=== PATIENT | male | born 1995 | race Caucasian/White ===

== ENCOUNTER 2021-02-17 21:25 | Emergency (ER) | payer BC ==
[~2021-02-17] VITALS: Ht 188 cm; Wt 68.0 kg
--- NOTE | 2021-02-17 21:40 | NUR ---
PATIENT BIBSELF C/O UNABLE TO SLEEP X1 DAY. REQUESTING LUNESTA 3MG. NO SIGN OF ACUTE DISTRESS, BREATHING EVEN AND UNLABORED. PT SEEN AND EXAMINED BY DR SALCIDO.
[2021-02-17] MEDS ORDERED: ESZO3TAB27 PO ×2 (21:51→21:53)
--- NOTE | 2021-02-17 22:00 | NUR ---
Patient discharged to home in stable condition. Written and verbal after care instructions given. Patient verbalizes understanding of instruction. Patient ambulatory with a steady gait
[2021-02-17 22:01] VITALS: BP 120/58
== END 2021-02-17 22:01 | disposition home or self-care (01) ==
LOC: ER 21:25
DX: G47.00 Insomnia, unspecified (principal); Z76.0 Encounter for issue of repeat prescription; Z79.899 Other long term (current) drug therapy

== ENCOUNTER 2021-10-20 20:57 | Emergency (ER) | payer BC ==
[~2021-10-20] VITALS: Ht 188 cm; Wt 67.6 kg
[~2021-10-20 20:57] MED LIST: ESZO3TAB27 PO
--- NOTE | 2021-10-20 21:13 | NUR ---
[place] [facility] FROM [facility] C/O OD ON UNKNOWN SUBSTANCE. PATIENT TAKEN ER BED 15. PATIENT AROUSABLE, NO ANSWERING STAFF QUESTION. VSS. WILL CONTINUE TO MONITOR.
--- NOTE | 2021-10-20 21:15 | NUR ---
[employer] AT BEDSIDE
--- NOTE | 2021-10-20 21:22 | NUR ---
[employer] FINAL INSPECTOR AT PT'S BEDSIDE
[2021-10-20 21:37] LABS: BASOPHILS % (AUTO) 0.6 % (0.0-2.0); EOSINOPHILS % (AUTO) 0.1 % (0.0-6.0); HEMATOCRIT 45 % (39-51); LYMPHOCYTES # (AUTO) 1.5 K/uL (0.8-4.8); LYMPHOCYTES % (AUTO) 28.5 % (20.0-44.0); MEAN CORPUSCULAR HGB CONC 33 g/dl (31.0-36.0); MEAN CORPUSCULAR VOLUME 87 fL (80-96); MONOCYTES # (AUTO) 0.3 K/uL (0.1-1.30); MONOCYTES % (AUTO) 6.6 % (2.0-12.0); NEUTROPHILS # (AUTO) 3.4 K/uL (1.8-8.9); NEUTROPHILS % (AUTO) 64.2 % (43.0-81.0); PLATELET COUNT (AUTO) 225 K/uL (150-450); RED BLOOD CELL COUNT(AUTO) 5.22 MIL/uL (4.5-6.0); WHITE BLOOD COUNT (AUTO) 5.2 K/uL (4.3-11.0)
--- NOTE | 2021-10-20 21:50 | NUR ---
URINE COLLECTED AND SENT TO LAB. >1000ML URINE OUTPUT
--- NOTE | 2021-10-20 21:51 | NUR ---
PT TAKEN TO CT VIA [facility]
[2021-10-20] MEDS ORDERED: LORAZEPAM INJ 2 MG/ML VIAL ONE (21:54)
--- NOTE | 2021-10-20 21:58 | NUR ---
PT RESTLESS DURING TRANSPORTATION TO CT; ADMINISTERED ATIVAN 1MG ORDERED. WILL TRY AGAIN LATER
[2021-10-20] MEDS ORDERED: LORAZEPAM INJ 2 MG/ML VIAL IV ONE (22:00)
[2021-10-20 22:13] LABS: CALCIUM, SERUM 9.4 mg/dL (8.5-10.1); CARBON DIOXIDE 29 mmol/L (21-32); CHLORIDE 99 mmol/L (98-107); CREATININE 0.9 mg/dL (0.6-1.3); GLUCOSE 87 mg/dL (74-106); POTASSIUM 3.8 mmol/L (3.5-5.1); SODIUM SERUM 136 mmol/L (136-145); UREA NITROGEN, BLOOD 5 mg/dL (7-18)
[2021-10-20 22:19] LABS: ACETAMINOPHEN 0 ug/ml (10-30); ALANINE AMINOTRANSFERASE 17 U/L (12-78); ALBUMIN 4.8 g/dL (3.4-5.0); ALCOHOL, BLOOD 24 mg/dL (0-0); ALKALINE PHOSPHATASE 65 U/L (46-116); ASPARTATE AMINOTRANSFERASE 19 U/L (15-37); BILIRUBIN,DIRECT 0.2 mg/dL (0.0-0.2)
--- NOTE | 2021-10-20 22:42 | NUR ---
PT TAKEN TO CT VIA [facility]
[2021-10-20 23:13] LABS: BILIRUBIN,URINE NEGATIVE (NEGATIVE); COLOR,URINE YELLOW (YELLOW); LEUKOCYTE ESTERASE ,URINE NEGATIVE (NEGATIVE); NITRITE, URINE NEGATIVE (NEGATIVE); PROTEIN,URINE NEGATIVE (NEGATIVE); UGLUCOSE NEGATIVE (NEGATIVE); UROBILINOGEN,URINE 0.2 EU/dL (0.2)
--- NOTE | 2021-10-21 00:34 | NUR ---
PT SLEEPING. IN NO ACUTE DISTRESS AT THIS TIME. VSS. ALL NEEDS MET. SAFETY MEASURES CONTINUED.
--- NOTE | 2021-10-21 03:05 | NUR ---
pt is awake. however still drowsy and fall back to sleep. pt was provided with water and tolerated well.
--- NOTE | 2021-10-21 05:35 | NUR ---
PT AWOKEN AND AMBULATED TO THE BATHROOM ON STEADY GAIT. PT IS REQUESTING TO LEAVE. MADE AWARE.
--- NOTE | 2021-10-21 06:05 | NUR ---
Patient discharged to home in stable condition. Written and verbal after care instructions given. Patient verbalizes understanding of instruction. Pt ambulatory with a steady gait
[2021-10-21 06:09] VITALS: BP 112/76
== END 2021-10-21 06:05 | disposition home or self-care (01) ==
LOC: ER 21:08
DX: R41.82 Altered mental status, unspecified (principal); Z79.899 Other long term (current) drug therapy
CPT/HCPCS: 36415; 70450; 80048; 80076; 80143; 80307; 80320; 81003; 85025; 96372; 99285; J2060; G0480

== ENCOUNTER 2021-12-16 01:19 | Emergency (ER) | payer BC ==
[~2021-12-16] VITALS: Ht 185.4 cm; Wt 67.6 kg
--- NOTE | 2021-12-16 01:35 | NUR ---
TO ER BED 14. [id number] FROM [facility], FOUND UNCONSIOUS WITH BAG OF XANAX. NEEDS MED CLEARANCE TO GO BACK TO [facility]. BS 120. PT IS ALERT AND ORIENTED. AMBULATORY WITH STEADY GAIT. BREATHING IS EVEN AND NONLABORED. CONNECTED TO MONITOR. BELONGINGS OBTAINED AND SECURED IN LOCKER. SAFETY PRECAUTIONS IN PLACE. AWAITING MD ORDERS
--- NOTE | 2021-12-16 02:59 | NUR ---
Patient discharged to [facility] in stable condition. Written and verbal after care instructions given. Patient verbalizes understanding of instruction.
[2021-12-16 03:06] VITALS: BP 112/72
== END 2021-12-16 03:06 | disposition home or self-care (01) ==
LOC: ER 01:25
DX: T42.4X1A Poisoning by benzodiazepines, accidental (unintentional), initial encounter (principal); R40.4 Transient alteration of awareness; Z79.899 Other long term (current) drug therapy; Y92.89 Other specified places as the place of occurrence of the external cause

== ENCOUNTER 2022-03-29 01:28 | Emergency (ER) | payer SELFPAY ==
[~2022-03-29] VITALS: Ht 185.4 cm; Wt 70.3 kg
[2022-03-29 03:06] VITALS: BP 143/74
== END 2022-03-29 03:25 | disposition home or self-care (01) ==
LOC: ER 01:30
DX: Z00.00 Encounter for general adult medical examination without abnormal findings (principal); Z76.5 Malingerer [conscious simulation]; Z60.2 Problems related to living alone; Z79.899 Other long term (current) drug therapy

== ENCOUNTER 2022-09-04 18:54 | Emergency (ER) | payer BC ==
[~2022-09-04] VITALS: Ht 188 cm; Wt 71.2 kg
--- NOTE | 2022-09-04 19:15 | NUR ---
SENIOR ADULTS DIRECTOR AT PT'S BEDSIDE
--- NOTE | 2022-09-04 19:18 | NUR ---
Patient AOx4 able to express his concerns. Patient states he is in pain 01/09, MD made aware. Discussed plan of care and pending XRAY. 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
[2022-09-04] MEDS ORDERED: KETOROLAC TROMETHAMINE INJ 30 MG/ML VIAL IM ONE (19:30)
--- NOTE | 2022-09-04 19:35 | NUR ---
Handoff report given to Briana ÁLVAREZ
[2022-09-04] MEDS ORDERED: KETOROLAC TROMETHAMINE INJ 30 MG/ML VIAL ONE (19:42)
--- NOTE | 2022-09-04 19:45 | NUR ---
Received patient, AOx4, able to verbalize needs. pt noted to have sling on L arm. Toradol IM given as per MD order. Will continue to monitor.
--- NOTE | 2022-09-04 20:10 | NUR ---
TERRAZZO LABORER ORTHO PAGED. AWAITING CALL BACK FROM PHYSICIAN.
--- NOTE | 2022-09-04 20:19 | NUR ---
DR EVANS ON PHONE CALL WITH DR TELLEZ
[2022-09-04] MEDS ORDERED: MORPHINE SULFATE INJ 2 MG/ML DISP.SYRIN IM ONE (20:30)
[2022-09-04] MEDS ORDERED: MORPHINE SULFATE INJ 2 MG/ML DISP.SYRIN IV ONE (20:30)
[2022-09-04] MEDS ORDERED: MORPHINE SULFATE INJ 2 MG/ML DISP.SYRIN ONE (20:34)
[2022-09-04] MEDS ORDERED: HYDR-3980 PO (20:51)
[2022-09-04 21:16] VITALS: BP 125/70
[2022-09-20] MEDS ORDERED: ALPR1TAB7 PO (08:11)
[2022-09-20] MEDS ORDERED: HYDR-3980 PO (08:11)
[2022-09-20] MEDS ORDERED: SULF1TAB48 PO (08:11)
== END 2022-09-04 21:18 | disposition home or self-care (01) ==
LOC: ER 18:55
DX: S42.252A Displaced fracture of greater tuberosity of left humerus, initial encounter for closed fracture (principal); F17.200 Nicotine dependence, unspecified, uncomplicated; Z79.899 Other long term (current) drug therapy; Z60.2 Problems related to living alone; V00.141A Fall from scooter (nonmotorized), initial encounter; Y93.89 Activity, other specified; Y92.89 Other specified places as the place of occurrence of the external cause; Y99.8 Other external cause status
CPT/HCPCS: 23665; 99284; 73030; 96372; 96374; J1885; J2270

== ENCOUNTER 2022-09-17 23:36 | Inpatient (IN) | payer BC ==
[~2022-09-17] VITALS: Ht 185.4 cm; Wt 71.7 kg
[~2022-09-17 23:36] MED LIST changes: +HYDR-3980 PO
[2022-09-18] MEDS ORDERED: VANCOMYCIN 1 GM VIAL ONE (00:25)
[2022-09-18] MEDS ORDERED: VANCOMYCIN 1 GM in IV D5W 250 ML IV ONE (00:30)
--- NOTE | 2022-09-18 00:58 | NUR ---
BIBS FROM [facility] DID AMA, CC OF CELLULITIS ON RIGHT CALF. PATIENT INJ HEROIN ON RIGHT CALF 10 DAYS AGO
--- NOTE | 2022-09-18 00:59 | NUR ---
US TECH AT PT'S BEDSIDE
--- NOTE | 2022-09-18 00:59 | NUR ---
RAC #18G S/L; BLOOD COLLECTED AND SENT TO LAB COVID ANTIGEN SWAB COLLECTED AND SENT TO LAB
[2022-09-18 01:07] LABS: BASOPHILS % (AUTO) 0.3 % (0.0-2.0); EOSINOPHILS % (AUTO) 0.3 % (0.0-6.0); HEMATOCRIT 36 % (39-51); HEMOGLOBIN 12.2 g/dL (13.5-17.5); LYMPHOCYTES # (AUTO) 1.8 K/uL (0.8-4.8); LYMPHOCYTES % (AUTO) 17.6 % (20.0-44.0); MEAN CORPUSCULAR HGB CONC 34 g/dl (31.0-36.0); MEAN CORPUSCULAR VOLUME 81 fL (80-96); MONOCYTES % (AUTO) 10.5 % (2.0-12.0); NEUTROPHILS # (AUTO) 7.1 K/uL (1.8-8.9); NEUTROPHILS % (AUTO) 71.3 % (43.0-81.0); PLATELET COUNT (AUTO) 313 K/uL (150-450); RED BLOOD CELL COUNT(AUTO) 4.39 MIL/uL (4.5-6.0)
[2022-09-18 01:33] LABS: CALCIUM, SERUM 9.4 mg/dL (8.5-10.1); CREATININE 0.7 mg/dL (0.6-1.3); POTASSIUM 3.5 mmol/L (3.5-5.1)
[2022-09-18 01:48] LABS: ALBUMIN 3.6 g/dL (3.4-5.0); BILIRUBIN,DIRECT 0.2 mg/dL (0.0-0.2); BILIRUBIN,TOTAL 0.6 mg/dL (0.2-1.0); TOTAL PROTEIN, SERUM 7.4 g/dL (6.4-8.2)
[2022-09-18] MEDS ORDERED: MORPHINE SULFATE INJ 2 MG/ML DISP.SYRIN IV PRN (05:30)
[2022-09-18] MEDS ORDERED: ACETAMINOPHEN 325 MG TABLET PO PRN (05:30)
[2022-09-18] MEDS ORDERED: ONDANSETRON HCL/PF 4 MG/2 ML VIAL IVP PRN (05:30)
[2022-09-18] MEDS ORDERED: ENOXAPARIN SODIUM 40 MG/0.4 ML DISP.SYRIN SQ SCH (05:30)
[2022-09-18] MEDS ORDERED: ENOXAPARIN SODIUM 40 MG/0.4 ML DISP.SYRIN SQ ONE (05:52)
--- NOTE | 2022-09-18 07:54 | NUR ---
THE PATIENT IS RECEIVED IN ER BED #13. THE PATIENT IS SLEEPING. RESPONSIVE TO VERBAL STIMULI. RESPIRATION REGULAR AND UNLABORED. WILL CONTINUE TO MONITOR THE PATIENT.
--- NOTE | 2022-09-18 08:52 | NUR ---
GOT BED 329-1 ADMITTING NOTIFIED.
--- NOTE | 2022-09-18 09:06 | NUR ---
REPORT GIVEN TO NURSE BERTRAND FOR BREEZY
--- NOTE | 2022-09-18 09:59 | NUR ---
RN MS NOTES RECEIVED PT FROM E.R. STAFF VIA BED, PT IS AWAKE, ALERT AND ORIENTED, NO COMPLAINT OF PAIN AT THIS TIME, RESPIRATIONS NORMAL, ASSISTED TO BED, MADE COMFORTABLE, ROOM SET UP ORIENTATION PROVIDED, VERBALIZED UNDERSTANDING, CALL LIGHT PLACED WITHIN REACH, NEEDS ATTENDED.
--- NOTE | 2022-09-18 09:59 | NUR ---
the patient is transfered to room 329 in stable conditon and per policy.
[2022-09-18 10:00] VITALS: BP 114/64
[2022-09-18] MEDS: TRAMADOL HCL 50 MG TABLET PO PRN ×2 (11:17→21:07)
[2022-09-18] MEDS: VANCOMYCIN 1.25 GM in IV D5W 250 ML IV SCH ×2 (11:21→18:05)
[2022-09-18] MEDS ORDERED: ALPRAZOLAM 1 MG TABLET PO SCH (16:00)
[2022-09-18 16:06] VITALS: BP 115/69
--- NOTE | 2022-09-18 18:36 | NUR ---
RN MS NOTES PT IN BED, AWAKE, ALERT AND ORIENTED, XANAX GIVEN ORDERED, VERBALIZED RELIEF, NOT IN DISTRESS, DUE MEDS GIVEN SCHEDULED, AMBULATES TO THE BATHROOM NEEDED, RIGHT A/C IV LINE INTACT AND PATENT, NO S/S OF INFECTION OR INFILTRATION NOTED, SEEN BY DR. TORRE TODAY, RECOMMENDATIONS GIVEN, ORDERED MRI OF RIGHT LOWER EXT, CHECKLIST DONE, NEEDS ATTENDED.
[2022-09-18 20:00] VITALS: BP 113/61
[2022-09-18] MEDS: ALPRAZOLAM 1 MG TABLET PO SCH (20:09)
--- NOTE | 2022-09-18 20:27 | NUR ---
MS RN OPENING NOTE PATIENT AWAKE IN BED, ALERT/ORIENTED X 4, PT ABLE TO MAKE NEEDS KNOWN. PATIENT VERY RESTLESS, ANXIOUS AND EASILY IRRITATED, SCHEDULED XANAX GIVEN ORDERED. PATIENT STABLE ON RA, NO S/S OF DISTRESS OR SOB NOTED, BREATHING EVEN AND UNLABORED. IV ACCESS ON RAC #18G INTACT AND INFUSING VANCO @ 125 ML/HR. EXPLAINED TO PATIENT THAT HE MUST BE NPO POST MIDNIGHT FOR RIGHT LOWER LEG INCISION AND DRAINAGE OF INTRAMUSCULAR ABSCESS TOMORROW, PT VERBALIZED UNDERSTANDING. PATIENT REQUESTING SLEEPING MEDICATION, WILL CONTACT METAL REED TUNER MD. SAFETY MEASURES IN PLACE: CALL LIGHT WITHIN REACH, SIDE RAILS UP X 2, BED LOCKED IN LOWEST POSITION. WILL CONTINUE TO MONITOR PATIENT
--- NOTE | 2022-09-18 21:12 | NUR ---
MS RN NOTE PATIENT CONTINUES TO BE RESTLESS, NOW C/O OF RIGHT CALF PAIN 01/09. PRN TRAMADOL 100 MG PO GIVEN ORDERED. PATIENT ALSO REQUESTING SLEEPING PILL FOR LATER TONIGHT. CONTACTED PROTECTIVE SIGNAL REPAIRER MD WITH ORDER FOR PRN AMBIEN 5 MG PO HS
[2022-09-18] MEDS ORDERED: ZOLPIDEM TARTRATE 5 MG TABLET PO PRN (21:30)
--- NOTE | 2022-09-18 22:35 | NUR ---
MS RN NOTE PATIENT REQUESTING SLEEPING MEDICATION. PRN AMBIEN 5 MG PO GIVEN ORDERED. WILL CONTINUE TO MONITOR PATIENT
[2022-09-19] MEDS: VANCOMYCIN 1.25 GM in IV D5W 250 ML IV SCH ×3 (02:10→17:25)
--- NOTE | 2022-09-19 03:43 | NUR ---
MS RN NOTE PATIENT HAS EPISODES OF ANXIETY, RESTLESS, EASILY AGITATED, APPEARS TO BE WITHDRAWING. PATIENT NPO AT THIS TIME FOR RIGHT LEG I & D TODAY. CONTACTED FLOWER MAKER MD VIKI ABRAMS WITH ORDER FOR ATIVAN 1 MG IV Q6H PRN. ORDER VERIFIED AND CARRIED OUT
[2022-09-19] MEDS ORDERED: LORAZEPAM INJ 2 MG/ML VIAL IV PRN (04:00)
[2022-09-19] MEDS: ALPRAZOLAM 1 MG TABLET PO SCH ×4 (04:03→21:14)
--- NOTE | 2022-09-19 06:15 | NUR ---
MS RN NOTE PATIENT REFUSED LABS DESPITE EXPLANATION OF RISKS AND BENEFITS PATIENT STILL REFUSED AND STATED HE WANTED TO SLEEP. TOLD LAB TO TRY AGAIN LATER. WILL ENDORSE TO DAYSHIFT RN TO FOLLOW UP PATIENT NEEDS LAB RESULTS BEFORE PROCEDURE TODAY
--- NOTE | 2022-09-19 06:37 | NUR ---
MS RN CLOSING NOTE PATIENT SLEEPING IN BED, ALERT/ORIENTED X 4, PT ABLE TO MAKE NEEDS KNOWN. PATIENT WITH EPISODES OF RESTLESSNESS, ANXIETY AND EASILY AGITATED, APPEARS TO BE WITHDRAWING. PATIENT STABLE ON RA, NO S/S OF DISTRESS OR SOB NOTED, BREATHING EVEN AND UNLABORED. IV ACCESS ON RAC #18G INTACT AND SALINE LOCKED. MEDICATIONS GIVEN ORDERED, PT NEEDS MET THROUGHOUT SHIFT. PATIENT CONTINUES TO COMPLAIN ABOUT NOT BEING ABLE TO DRINK WATER, KEPT REMINDING PATIENT THAT HE MUST STAY NPO FOR RIGHT LOWER LEG I & D TODAY. CONSENTS SIGNED BY PATIENT LAST NIGHT. PATIENT REFUSED AM LABS THIS AM, ALSO ATTEMPTED TO DO MRSA SWAB THIS AM BUT PATIENT REFUSED AND STATED HE JUST WANTED TO SLEEP. SAFETY MEASURES IN PLACE: CALL LIGHT WITHIN REACH, SIDE RAILS UP X 2, BED LOCKED IN LOWEST POSITION. WILL ENDORSE TO DAYSHIFT RN FOR CONTINUITY OF CARE
--- NOTE | 2022-09-19 07:30 | NUR ---
MS ÁLVAREZ RECEIVED PATIENT SLEEPING BED, EASILY AROUSED, A/O X4. NO SIGNS OF ACUTE DISTRESS AND SOB NOTED, BREATHING EVEN AND UNLABORED. PATIENT IS ON ROOM AIR, SATURATING WELL. WITH IV ACCESS ON RAC #18G INTACT AND SALINE LOCKED. SAFETY MEASURES PUT IN PLACE. BED IN LOW AND LOCKED POSITION, SIDE RAILS UP X2, CALL LIGHT WITHIN EASY REACH. WILL CONTINUE TO MONITOR PATIENT. Addendum: 09/19/22 at 1101 by GAMAL SHOOK RN MS ÁLVAREZ OPENING NOTE:
[2022-09-19 07:59] VITALS: BP 113/58
[2022-09-19] MEDS ORDERED: POLYMYXIN B SULFATE 500,000 UNITS ONE (08:26)
[2022-09-19] MEDS ORDERED: VANCOMYCIN 1 GM VIAL ONE (08:26)
[2022-09-19] MEDS ORDERED: BUPIVACAINE 0.25% 75 MG/30 ML VIAL ONE (08:26)
[2022-09-19] MEDS: TRAMADOL HCL 50 MG TABLET PO PRN (08:49)
--- NOTE | 2022-09-19 08:59 | NUR ---
MS RN NOTE PATIENT COMPLAINED OF SEVERE PAIN ON THE RIGHT CALF AND ANXIETY. WITH STANDING ORDER FOR TRAMADOL FOR SEVERE PAIN. MD NOTIFIED REGARDING ANXIETY AND XANAX ADMINISTRATION ADJUSTED PER MD ORDER. PROVIDED WITH CALM AND QUIET ENVIRONMENT. HEALTH TEACHING DONE REGARDING RELAXATION TECHNIQUES. PATIENT UPDATED OF TIME FOR SURGERY - TENTATIVELY SET AT 1330.
[2022-09-19] MEDS: ENOXAPARIN SODIUM 40 MG/0.4 ML DISP.SYRIN SQ SCH (09:00)
--- NOTE | 2022-09-19 09:00 | NUR ---
MS RN HELD LOVENOX PATIENT WILL BE HAVING SURGERY AT 1330H.
[2022-09-19 09:16] LABS: BASOPHILS # (AUTO) 0.1 K/uL (0.0-0.2); BASOPHILS % (AUTO) 0.9 % (0.0-2.0); CALCIUM, SERUM 8.9 mg/dL (8.5-10.1); CREATININE 0.8 mg/dL (0.6-1.3); EOSINOPHILS % (AUTO) 0.6 % (0.0-6.0); HEMATOCRIT 34 % (39-51); HEMOGLOBIN 11.1 g/dL (13.5-17.5); LYMPHOCYTES # (AUTO) 1.1 K/uL (0.8-4.8); LYMPHOCYTES % (AUTO) 8.9 % (20.0-44.0); MAGNESIUM 1.7 mg/dL (1.8-2.4); MEAN CORPUSCULAR HGB CONC 33 g/dl (31.0-36.0); MEAN CORPUSCULAR VOLUME 83 fL (80-96); MONOCYTES # (AUTO) 1.1 K/uL (0.1-1.30); MONOCYTES % (AUTO) 8.7 % (2.0-12.0); NEUTROPHILS # (AUTO) 10.1 K/uL (1.8-8.9); NEUTROPHILS % (AUTO) 80.9 % (43.0-81.0); PHOSPHORUS 3.2 mg/dL (2.5-4.9); PLATELET COUNT (AUTO) 352 K/uL (150-450); POTASSIUM 3.9 mmol/L (3.5-5.1); RED BLOOD CELL COUNT(AUTO) 4.09 MIL/uL (4.5-6.0); WHITE BLOOD COUNT (AUTO) 12.5 K/uL (4.3-11.0)
--- NOTE | 2022-09-19 09:30 | NUR ---
MS RN NOTE COMPLAINED OF UNABLE TO URINATE NON PALPABLE BLADDER. HE SAID THIS IS NOT THE FIRST TIME. BLADDER SCAN DONE NOTED 250 ML. BUT WAS ABLE TO URINATE EVENTUALLY.
--- NOTE | 2022-09-19 10:13 | NUR ---
WOUND CARE CONSULT; PT REFUSED SKIN ASSESSMENT.WILL SEE PT PT CONDITION PERMITS.
--- NOTE | 2022-09-19 10:57 | NUR ---
WOUND CARE: RT CALF AREA IS TENDER AND INDURATED. DEFER TO ORTHO SURGEON. LEFT HIP AREA HAS OPEN WOUND,PRESENT ON ADMISSION.PT STATES THAT HE FELL ON SOME STAIRS AT HOME. RECOMMENDATIONS MADE FOR SKIN PROTECTION AND WOUND CARE. DISCUSSED WITH NURSING STAFF. MD IN AGREEMENT WITH PLAN OF CARE.
[2022-09-19] MEDS: NEOMY SULF/BACITRAC ZN/POLY 15 GM TUBE TP SCH (12:28)
[2022-09-19] MEDS ORDERED: MIDAZOLAM HCL 2 MG/2ML VIAL ONE (12:41)
[2022-09-19] MEDS ORDERED: FENTANYL PF 250MCG/5ML AMPUL ONE (12:41)
[2022-09-19] MEDS ORDERED: SUCCINYLCHOLINE CHLORIDE 20 MG/ML VIAL ONE (12:42)
--- NOTE | 2022-09-19 12:49 | NUR ---
MS RN PATIENT CURRENTLY IN OR. PICKED UP BY 2 OR NURSES.
[2022-09-19] MEDS ORDERED: MORPHINE SULFATE INJ 4 MG/ML DISP.SYRIN IV PRN (14:30)
[2022-09-19] MEDS ORDERED: HYDROCODONE/APAP 5/325MG TABLET PO PRN ×2 (14:30→15:00)
--- NOTE | 2022-09-19 14:30 | NUR ---
MS RN PATIENT CAME BACK FROM OR VIA HOSPITAL BED, AWAKE, AO/4. S/P INCISION AND DRAINAGE WITH REMOVAL OF ABSCESS. SURGICAL SITE COVERED WITH BANDAGE, DRY AND INTACT. WILL CONTINUE TO MONITOR.
[2022-09-19] MEDS ORDERED: ACETAMINOPHEN 325 MG TABLET PO PRN (15:00)
[2022-09-19] MEDS ORDERED: DOCUSATE SODIUM 250 MG CAPSULE PO PRN (15:00)
[2022-09-19] MEDS ORDERED: DOCUSATE SODIUM 100 MG CAPSULE PO PRN (15:00)
--- NOTE | 2022-09-19 15:10 | NUR ---
MS RN NOTE CHECKED ON PATIENT WHEN THE BED ALARM WAS TRIGGERRED. PATIENT WAS STANDING AND WAS VERY INSISTENT ON CHANGING FROM THE GOWN TO HIS REGULAR CLOTHES. NOTED THAT THE PATIENT HAD WEIGHTS PLACED ON HIS SCROTAL SAC AND HAD RINGS ON HIS PENIS. PATIENT DID NOT COMPLAIN OF PAIN OR DISCOMFORT AT THIS TIME.
[2022-09-19] MEDS ORDERED: ALPR0.5T8 PO (15:20)
[2022-09-19] MEDS ORDERED: ALPR1TAB7 PO (15:20)
[2022-09-19] MEDS ORDERED: PROP10TA68 PO (15:20)
[2022-09-19] MEDS ORDERED: SENNOSIDES 8.6 MG TABLET PO PRN ×2 (15:30)
[2022-09-19] MEDS ORDERED: BISACODYL SUPP (10 MG) 10 MG/SUPP.RECT SUPP.RECT RC PRN (15:30)
[2022-09-19 15:47] VITALS: BP 124/76
--- NOTE | 2022-09-19 18:55 | NUR ---
MS RN CLOSING NOTE PATIENT IS SLEEPING IN BED, EASILY AROUSED, A/O X4. NO SIGNS OF ACUTE DISTRESS AND SOB NOTED, BREATHING EVEN AND UNLABORED. PATIENT IS ON ROOM AIR, SATURATING WELL. WITH IV ACCESS ON RAC #18G INTACT AND SALINE LOCKED. PATIENT HAS SURGICAL DRESSING ON RIGHT LEG, COVERED WITH BANDAGE, DRY AND INTACT. ALL DUE MEDS GIVEN. ALL NEEDS ATTENDED. SAFETY MEASURES PUT IN PLACE. BED IN LOW AND LOCKED POSITION, SIDE RAILS UP X2, CALL LIGHT WITHIN EASY REACH. WILL ENDORSE TO COLLECTIVE BARGAINING SPECIALIST NURSE FOR CONTINUITY OF CARE.
--- NOTE | 2022-09-19 19:43 | NUR ---
RN OPENING NOTES; RECEIVED PT IN BED AWAKED AOX4 ABLE TO MAKE NEEDS KNOWN,ON RM AIR DEVEN WELL SAT 98%,NO SIGN SOB/DISTRESS NOTED,NO COMPLAIN OF PAIN/DISCOMFORT AT THIS TIME,IV ACCESS ON RAC 18G SL,PATENT AND INTACT,SAFETY MEASURE IN PLACE,CALL LIGHT WITHIN REACH,WILL CONTINUE TO MONITOR.
[2022-09-19 20:00] VITALS: BP 125/72
[2022-09-20] MEDS: VANCOMYCIN 1.25 GM in IV D5W 250 ML IV SCH ×2 (02:22→10:25)
[2022-09-20] MEDS: ALPRAZOLAM 1 MG TABLET PO SCH ×2 (04:20→13:56)
[2022-09-20] MEDS: TRAMADOL HCL 50 MG TABLET PO PRN ×2 (06:08→10:27)
--- NOTE | 2022-09-20 06:13 | NUR ---
RN NOTES; PATIENT COMPLAINED OF R CALF PAIN 12/09.PRN TRAMADOL 100MG WAS GIVEN.NO A/R NOTED.
--- NOTE | 2022-09-20 06:19 | NUR ---
RN OPENING NOTES; PATIENT IN BED AWAKED AOX4 ABLE TO MAKE NEEDS KNOWN,ON RM AIR DEVEN WELL SAT 99%,NO SIGN SOB/DISTRESS NOTED,,IV ACCESS ON RAC 18G SL,PATENT AND INTACT,DUE MEDS GIVEN ORDER,ALL NEEDS ATTENDED,PT AMBULATORY WITH STEADY GAIT.SAFETY MEASURE IN PLACE,CALL LIGHT WITHIN REACH,WILL ENDORSED TO NEXT SHIFT.
--- NOTE | 2022-09-20 07:20 | NUR ---
MS RN OPENING RECEIVED PATIENT SLEEPING BED, EASILY AROUSED, A/O X4. NO SIGNS OF ACUTE DISTRESS AND SOB NOTED, BREATHING EVEN AND UNLABORED. PATIENT IS ON ROOM AIR, SATURATING WELL. WITH IV ACCESS ON RAC #18G INTACT AND SALINE LOCKED. SAFETY MEASURES PUT IN PLACE. BED IN LOW AND LOCKED POSITION, SIDE RAILS UP X2, CALL LIGHT WITHIN EASY REACH. WILL CONTINUE WITH PLAN OF CARE.
[2022-09-20 07:25] LABS: BASOPHILS # (AUTO) 0.1 K/uL (0.0-0.2); BASOPHILS % (AUTO) 0.4 % (0.0-2.0); HEMATOCRIT 32 % (39-51); HEMOGLOBIN 10.4 g/dL (13.5-17.5); LYMPHOCYTES # (AUTO) 1.7 K/uL (0.8-4.8); LYMPHOCYTES % (AUTO) 11.8 % (20.0-44.0); MEAN CORPUSCULAR HGB CONC 33 g/dl (31.0-36.0); MEAN CORPUSCULAR VOLUME 82 fL (80-96); MONOCYTES # (AUTO) 2.3 K/uL (0.1-1.30); MONOCYTES % (AUTO) 16.1 % (2.0-12.0); NEUTROPHILS # (AUTO) 10.2 K/uL (1.8-8.9); NEUTROPHILS % (AUTO) 71.7 % (43.0-81.0); PLATELET COUNT (AUTO) 344 K/uL (150-450); RED BLOOD CELL COUNT(AUTO) 3.87 MIL/uL (4.5-6.0); WHITE BLOOD COUNT (AUTO) 14.2 K/uL (4.3-11.0)
[2022-09-20 07:38] LABS: CALCIUM, SERUM 8.3 mg/dL (8.5-10.1); CREATININE 0.9 mg/dL (0.6-1.3); POTASSIUM 3.6 mmol/L (3.5-5.1)
[2022-09-20 08:00] VITALS: BP 108/50
[2022-09-20] MEDS ORDERED: HYDR-3980 PO (08:11)
[2022-09-20] MEDS ORDERED: ALPR1TAB7 PO (08:11)
[2022-09-20] MEDS ORDERED: SULF1TAB48 PO (08:11)
[2022-09-20] MEDS: NEOMY SULF/BACITRAC ZN/POLY 15 GM TUBE TP SCH (09:00)
[2022-09-20] MEDS: ENOXAPARIN SODIUM 40 MG/0.4 ML DISP.SYRIN SQ SCH (09:00)
--- NOTE | 2022-09-20 11:00 | NUR ---
MS RN NOTE SEEN BY DR GAR WITH ORDER FOR DISCHARGE. HEALTH TEACHING DONE REGARDING DC, VERBALIZED UNDERSTANDING AND APPRECIATION. SEEN BY WOUND CARE NURSE PRATIK FOR PACKING ORDERS, PATIENT REFUSED TO DO PACKING TREATMENT ON THE WOUND BUT SAID HE WILL DO THE TREATMENT HIMSELF. COMPOSITION ROLL MAKER AND CUTTER CAROLE WENT TO SEE PATIENT AT BEDSIDE TOO. PROVIDED WITH CALM AND QUIET ENVIRONMENT. IN STABLE CONDITION. REQUESTED FOR WALKER, NOTIFIED CENTRAL SUPPLIES.
--- NOTE | 2022-09-20 11:02 | NUR ---
WOUND CARE CONSULT: PT PRESENTS WITH RT LOWER LEG SURGICAL SITE WITH SUTURES AND OPEN AREA. IODOFORM PACKING REMOVED AND SEROSANGUINOUS DRAINAGE NOTED WITHOUT ODOR. ORTHO P.A. EXAMINED PT. PT REFUSED TO HAVE WOUND RE-PACKED, THEN ALLOWED PACKING, DRESSING OF WOUND AFTER RECEIVING PAIN MED. DISCUSSED SKIN PROTECTION AND WOUND CARE WITH NURSING STAFF. MD IN AGREEMENT WITH PLAN OF CARE.
--- NOTE | 2022-09-20 16:30 | NUR ---
MS RN NOTE PATIENT DISCHARGED ORDERED. IV ACCESS REMOVED AND COVERED WITH DRY DRESSING, TOLERATED WELL. IN STABLE CONDITION. PATIENT SAID HE WILL TAKE UBER BY HIMSELF INSTEAD OF WAITING FOR HIS FRIEND. ENDORSED PATIENT ACCORDINGLY.
== END 2022-09-20 16:52 | disposition home or self-care (01) | DRG 501 ==
LOC: ER 23:40 → TRANSITION 09-18 04:54 → MED 09-18 09:20
PROVIDERS: ADMIT Internal Medicine; ATTEND Internal Medicine
PROC: 0K9S0ZZ Drainage of Right Lower Leg Muscle, Open Approach (ICD-10-PCS; principal; 2022-09-19)
PROC: 0KDS0ZZ Extraction of Right Lower Leg Muscle, Open Approach (ICD-10-PCS; 2022-09-19)
DX: M60.061 Infective myositis, right lower leg (principal); L03.115 Cellulitis of right lower limb; Z20.822 Contact with and (suspected) exposure to COVID-19; F19.90 Other psychoactive substance use, unspecified, uncomplicated; Z87.828 Personal history of other (healed) physical injury and trauma; Z59.00 Homelessness unspecified
CPT/HCPCS: 36415; 73700-TC; 80048-TC; 80076-TC; 80202-TC; 82550-TC; 82962-TC; 83605-TC; 83690-TC; 83735-TC; 84100-TC; 85025-TC; 85730-TC; 87040-TC; 87081-TC; 93971-TC; A4217; A4223; A6253; A6407; C9803; G0378; J0330; J0690; J1650; J2060; J2250; J2270; J2405; J2704; J2765; J3010; J3370; J3490; J7030; J7050; J7060